=== PATIENT | male | born 1955 | race Caucasian/White ===

== ENCOUNTER 2017-03-29 18:40 | Emergency (ER) | payer BC ==
[2017-03-29 20:09] LABS: Hematocrit 45 % (42-52); Hemoglobin 15.5 g/dl (14.0-18.0); Mean Corpuscular HGB Conc 34 g/dl (31-36); Mean Corpuscular Hemoglobin 29 pg (27-31); Mean Corpuscular Volume 86 fL (80-94); Mean Platelet Volume 8 um3 (7.4-10.4); Red Cell Distribution Width 13 % (10.5-15); White Blood Count 6.9 10^3/ul (3.5-10.8)
--- NOTE | 2017-03-29 20:09 | RAD ---
HISTORY: Left calf swelling COMPARISONS: None relevant TECHNIQUE: Multiple transverse and longitudinal ultrasound images were obtained of the left lower extremity from the level of the common femoral vein inferiorly through to the infrapopliteal veins using grayscale, color Doppler, and spectral Doppler imaging with and without compression and with augmentation. Comparison images were obtained of the contralateral common femoral vein. FINDINGS: VEINS: The venous system of the left lower extremity is compressible throughout its course, with normal flow on color Doppler imaging and normal response to augmentation on spectral Doppler imaging. SOFT TISSUES: Unremarkable. OTHER FINDINGS: None. IMPRESSION: NO LEFT LOWER EXTREMITY DEEP VEIN THROMBOSIS
[2017-03-29 20:23] LABS: Albumin 4.5 g/dL (3.2-5.2); BUN/Creatinine Ratio 14.7 (8-20); EGFR African American 64.4 (>60); EGFR Non-African American 50.1 (>60); Globulin 2.9 g/dL (2-4); Potassium 4.4 mmol/L (3.5-5.0); Total Bilirubin 0.6 mg/dL (0.2-1.0); Total Protein 7.4 g/dL (6.4-8.9)
--- NOTE | 2017-03-29 20:49 | ED ---
Lower Extremity - HPI Summary HPI Summary: 61M presents with left calf swelling for 4 days. He states the area has been itchy so has been itching it because it it dry. He denies any spreading redness , warmth to area, fever. He denies any chest pain or SOB. He denies any history of blood clots. He denies any family history of blood clots. He does not smoke. He denies any recent surgeries or immobilization. He is diabetes. He gets dry skin is winter and use dermbond cream. - History of Current Complaint Chief Complaint: EDExtremityLower Stated Complaint: LT LEG SWOLLEN Time Seen by Provider: 03/29/17 19:02 Pain Intensity: 4 - Allergies/Home Medications Allergies/Adverse Reactions: Allergies Allergy/AdvReac Type Severity Reaction Status Date / Time No Known Allergies Allergy Verified 03/29/17 20:23 PMH/Surg Hx/FS Hx/Imm Hx Endocrine/Hematology History: Reports: Hx Diabetes Denies: Hx Anticoagulant Therapy Cardiovascular History: Reports: Hx Hypertension Infectious Disease History: No Infectious Disease History: Denies: Traveled Outside the [place] in Last 30 Days - Family History Known Family History: Negative: Blood Disorder - Social History Alcohol Use: None Substance Use Type: Reports: None Smoking Status (MU): Never Smoked Tobacco Review of Systems Negative: Fever Negative: Chest Pain Negative: Shortness Of Breath Positive: Edema - left calf All Other Systems Reviewed And Are Negative: Yes Physical Exam Triage Information Reviewed: Yes Vital Signs On Initial Exam: Initial Vitals Temp Pulse Resp BP Pulse Ox 97.3 F 78 18 163/83 99 03/29/17 18:43 03/29/17 18:43 03/29/17 18:43 03/29/17 18:43 03/29/17 18:43 Vital Signs Reviewed: Yes Appearance: Positive: Well-Appearing Skin: Positive: Warm, Dry, Other - exocriation and some petechia left calf with dry skin Head/Face: Positive: Normal Head/Face Inspection Eyes: Positive: Normal, Conjunctiva Clear Respiratory/Lung Sounds: Positive: Clear to Auscultation, Breath Sounds Present Cardiovascular: Positive: Normal, RRR Musculoskeletal: Positive: Strength/ROM Intact - left calf, Edema Left - mild left calf, Other - good pulses, capillary refill<2secs. Negative: Mane Sign Left Neurological: Positive: Sensory/Motor Intact Psychiatric: Positive: Normal - Paul Coma Scale Coma Scale Total: 15 Diagnostics - Vital Signs Vital Signs Temp Pulse Resp BP Pulse Ox 03/29/17 18:43 97.3 F 78 18 163/83 99 - Laboratory Lab Results: Lab Results 03/29/17 03/29/17 03/29/17 Range/Units 19:58 19:58 19:58 WBC 6.9 (3.5-10.8) 10^3/ul RBC 5.30 (4.0-5.4) 10^6/ul Hgb 15.5 (14.0-18.0) g/dl Hct 45 (42-52) % MCV 86 (80-94) fL MCH 29 (27-31) pg MCHC 34 (31-36) g/dl RDW 13 (10.5-15) % Plt Count 148 L (150-450) 10^3/ul MPV 8 (7.4-10.4) um3 Neut % (Auto) 54.7 (38-83) % Lymph % (Auto) 27.7 (25-47) % [place] % (Auto) 9.2 H (1-9) % Eos % (Auto) 7.2 H (0-6) % Baso % (Auto) 1.2 (0-2) % Absolute Neuts (auto) 3.7 (1.5-7.7) 10^3/ul Absolute Lymphs (auto) 1.9 (1.0-4.8) 10^3/ul Absolute Monos (auto) 0.6 (0-0.8) 10^3/ul Absolute Eos (auto) 0.5 (0-0.6) 10^3/ul Absolute Basos (auto) 0.1 (0-0.2) 10^3/ul Absolute Nucleated RBC 0.01 10^3/ul Nucleated RBC % 0.1 INR (Anticoag Therapy) 0.93 (0.77-1.02) APTT 30.8 (26.0-36.3) seconds Sodium 136 (133-145) mmol/L Potassium 4.4 (3.5-5.0) mmol/L Chloride 103 (101-111) mmol/L Carbon Dioxide 28 (22-32) mmol/L Anion Gap 5 (2-11) mmol/L BUN 21 (6-24) mg/dL Creatinine 1.43 H (0.67-1.17) mg/dL Est GFR ( Amer) 64.4 (>60) Est GFR (Non-Af Amer) 50.1 (>60) BUN/Creatinine Ratio 14.7 (8-20) Glucose 149 H (70-100) mg/dL Calcium 10.0 (8.6-10.3) mg/dL Total Bilirubin 0.60 (0.2-1.0) mg/dL AST 21 (13-39) U/L ALT 15 (7-52) U/L Alkaline Phosphatase 74 (34-104) U/L Total Protein 7.4 (6.4-8.9) g/dL Albumin 4.5 (3.2-5.2) g/dL Globulin 2.9 (2-4) g/dL Albumin/Globulin Ratio 1.6 (1-3) Result Diagrams: 03/29/17 19:58 03/29/17 19:58 Lab Statement: Any lab studies that have been ordered have been reviewed, and results considered in the medical decision making process. - Ultrasound No standard instances Ultrasound Interpretation: No Acute Changes Ultrasound Interpretation Completed By: Radiologist Lower Extremity Course/Dx - Course Course Of Treatment: 61M presents with left calf swelling for 4 days. He states the area has been itchy so has been itching it because it it dry. He denies any spreading redness, warmth to area, fever. He denies any chest pain or SOB. He denies any history of blood clots. He denies any family history of blood clots. He does not smoke. He denies any recent surgeries or immobilization. He is diabetes. He gets dry skin is winter and use dermbond cream. on exam has mild edema to left calf. has exocriation and some petechia on left calf. neg homans. u/s normal. labs normal wbc. platelets a little low so will have follow up with primary. patient understand and agrees with plan. - Diagnoses Differential Diagnosis/HQI/PQRI: Positive: Cellulitis, DVT, Strain Provider Diagnoses: Pain of left calf Discharge - Discharge Plan Condition: Good Disposition: HOME Patient Education Materials: Leg Pain (ED) Referrals: Frankie Alicea MD [Primary Care Provider] - Additional Instructions: Ice, elevate Take Tylenol for pain Follow up with primary Return to ED if develop any new or worsening symptoms
[2017-03-29 20:56] VITALS: BP 155/80
== END 2017-03-29 20:57 | disposition home or self-care (01) ==
LOC: ED 18:40
DX: M79.605 Pain in left leg (principal)
CPT/HCPCS: 36415; 80053; 85025; 85610; 85730; 99282